=== PATIENT | female | born 1995 | race Caucasian/White ===

== ENCOUNTER 2017-08-20 21:45 | Outpatient (CLI) | payer OTHER ==
[2017-08-20] MEDS: LACTATED RINGER'S 1,000 ML IV (23:09)
[2017-08-20 23:24] LABS: ADD UMIC NO; UR ASCORBIC ACID NEGATIVE (NEGATIVE); UR BILIRUBIN (Dip) NEGATIVE (NEGATIVE); UR BLOOD (Dip) NEGATIVE (NEGATIVE); UR CLARITY CLEAR (CLEAR); UR COLOR STRAW (YELLOW); UR GLUCOSE (Dip) 3+ mg/dL (NEGATIVE); UR KETONES (Dip) NEGATIVE (NEGATIVE); UR LEUKOCYTE ESTERASE (Dip) NEGATIVE Leu/ul (NEGATIVE); UR NITRITE (Dip) NEGATIVE (NEGATIVE); UR SPECIFIC GRAVITY (Dip) 1.003 (1.003-1.030); UR TOTAL PROTEIN (Dip) NEGATIVE (NEGATIVE); UR UROBILINOGEN (Dip) NEGATIVE (NEGATIVE)
[2017-08-20 23:54] LABS: ADD MAN DIFF? NO
[2017-08-21 00:01] LABS: BASOPHILS % 0.3 % (0.0-2.0); EOSINOPHILS # 0.1 10^3/ul (0.0-0.5); EOSINOPHILS % 1.1 % (0.0-7.0); HEMATOCRIT 37.2 % (37.0-47.0); HEMOGLOBIN 12.6 g/dl (12.0-16.0); LYMPHOCYTES # 2.1 10^3/ul (0.8-2.9); LYMPHOCYTES % 21.1 % (15.0-51.0); MEAN CORPUSCULAR HEMOGLOBIN 29.6 pg (29.0-33.0); MEAN CORPUSCULAR HGB CONC 33.9 g/dl (32.0-37.0); MEAN CORPUSCULAR VOLUME 87.5 fl (82.0-101.0); MEAN PLATELET VOLUME 11.1 fl (7.4-10.4); MONOCYTE # 0.7 10^3/ul (0.3-0.9); NEUTROPHILS % 69.9 % (39.0-77.0); PLATELET COUNT 216 10^3/UL (140-415); RED BLOOD COUNT 4.25 10^6/ul (4.20-5.40); RED CELL DISTRIBUTION WIDTH 13.6 % (11.5-14.5)
[2017-08-21 00:15] LABS: ALANINE AMINOTRANSFERASE 35 IU/L (13-69); ALBUMIN 3.5 g/dl (3.3-4.9); ALBUMIN/GLOBULIN RATIO 1.16; ALKALINE PHOSPHATASE 156 IU/L (42-121); ANION GAP 15 (8-16); ASPARTATE AMINO TRANSFERASE 34 IU/L (15-46); BLOOD UREA NITROGEN 13 mg/dl (7-20); CALCIUM 9.6 mg/dl (8.4-10.2); CARBON DIOXIDE 23 mmol/L (21-31); CHLORIDE 105 mmol/L (97-110); CREATININE 0.76 mg/dl (0.44-1.00); GLUCOSE 85 mg/dl (70-220); POTASSIUM 3.7 mmol/L (3.5-5.1); SODIUM 139 mmol/L (135-144); TOTAL PROTEIN 6.5 g/dl (6.1-8.1)
[2017-08-21 00:21] LABS: INR 0.93; PROTIME 12.5 Sec (11.9-14.9)
[2017-08-21 00:22] LABS: PARTIAL THROMBOPLASTIN TIME 25.8 Sec (25.0-35.0)
[2017-08-21 00:25] LABS: RUPTURE FETAL MEMBRANES NEGATIVE (NEGATIVE)
[2017-08-21] MEDS: BETAMET NA PHOS/AC(6 MG/ML) 5ML INJ IM (00:41)
== END 2017-08-21 01:57 | disposition home or self-care (01) ==
LOC: OBT 21:45 → L-D 21:46
DX: O13.3 Gestational [pregnancy-induced] hypertension without significant proteinuria, third trimester (principal); Z3A.35 35 weeks gestation of pregnancy
CPT/HCPCS: 36415; 76818; 80053; 81003; 84112; 84560; 85025; 85610; 85730; 87086; 96360; 96361; 96372

== ENCOUNTER 2017-08-21 22:27 | Outpatient (CLI) | payer OTHER ==
[2017-08-21] MEDS: BETAMET NA PHOS/AC(6 MG/ML) 5ML INJ IM (23:32)
== END 2017-08-22 06:07 | disposition home or self-care (01) ==
LOC: OBT 08-22 06:07 → L-D 22:28
DX: O62.9 Abnormality of forces of labor, unspecified (principal); Z3A.35 35 weeks gestation of pregnancy
CPT/HCPCS: J0702

== ENCOUNTER 2017-08-24 17:39 | Inpatient (IN) | payer OTHER ==
[2017-08-24 18:20] LABS: ADD MAN DIFF? NO
[2017-08-24 18:22] LABS: BASOPHIL # 0.1 10^3/ul (0.0-0.1); BASOPHILS % 0.5 % (0.0-2.0); EOSINOPHILS # 0.1 10^3/ul (0.0-0.5); EOSINOPHILS % 0.9 % (0.0-7.0); HEMATOCRIT 35.5 % (37.0-47.0); LYMPHOCYTES % 17.7 % (15.0-51.0); MEAN CORPUSCULAR HEMOGLOBIN 30.1 pg (29.0-33.0); MEAN CORPUSCULAR HGB CONC 33.8 g/dl (32.0-37.0); MONOCYTE # 0.9 10^3/ul (0.3-0.9); MONOCYTES % 7.6 % (0.0-11.0); NEUTROPHILS % 70.3 % (39.0-77.0); NUCLEATED RED BLOOD CELLS% 0.4 /100WBC (0.0-0.0); PLATELET COUNT 208 10^3/UL (140-415); RED BLOOD COUNT 3.99 10^6/ul (4.20-5.40); RED CELL DISTRIBUTION WIDTH 13.9 % (11.5-14.5)
[2017-08-24 18:22] LABS: WHITE BLOOD COUNT 11.4 10^3/ul (4.8-10.8)
[2017-08-24 18:32] LABS: ADD UMIC YES; UR ASCORBIC ACID NEGATIVE (NEGATIVE); UR BACTERIA FEW /HPF (NONE SEEN); UR BILIRUBIN (Dip) NEGATIVE (NEGATIVE); UR BLOOD (Dip) NEGATIVE (NEGATIVE); UR CLARITY SLIGHTLY CLOUDY (CLEAR); UR COLOR YELLOW (YELLOW); UR GLUCOSE (Dip) 1+ mg/dL (NEGATIVE); UR KETONES (Dip) NEGATIVE (NEGATIVE); UR LEUKOCYTE ESTERASE (Dip) 2+ Leu/ul (NEGATIVE); UR NITRITE (Dip) NEGATIVE (NEGATIVE); UR RBC 3 /HPF (0-5); UR SPECIFIC GRAVITY (Dip) 1.009 (1.003-1.030); UR SQUAMOUS EPITHELIAL CELL FEW /HPF (FEW); UR TOTAL PROTEIN (Dip) NEGATIVE (NEGATIVE); UR UROBILINOGEN (Dip) NEGATIVE (NEGATIVE); UR WBC 12 /HPF (0-5)
[2017-08-24 18:40] LABS: ALANINE AMINOTRANSFERASE 54 IU/L (13-69); ALBUMIN 3.4 g/dl (3.3-4.9); ALBUMIN/GLOBULIN RATIO 1.21; ALKALINE PHOSPHATASE 136 IU/L (42-121); ANION GAP 14 (8-16); ASPARTATE AMINO TRANSFERASE 52 IU/L (15-46); BILIRUBIN,INDIRECT 0.1 mg/dl (0-1.1); BILIRUBIN,TOTAL 0.1 mg/dl (0.2-1.3); BLOOD UREA NITROGEN 14 mg/dl (7-20); CALCIUM 9.3 mg/dl (8.4-10.2); CARBON DIOXIDE 21 mmol/L (21-31); CHLORIDE 107 mmol/L (97-110); CREATININE 0.82 mg/dl (0.44-1.00); GLUCOSE 136 mg/dl (70-220); POTASSIUM 3.9 mmol/L (3.5-5.1); SODIUM 138 mmol/L (135-144); TOTAL PROTEIN 6.2 g/dl (6.1-8.1)
[2017-08-24 18:46] LABS: INR 0.91; PARTIAL THROMBOPLASTIN TIME 22.9 Sec (25.0-35.0); PROTIME 12.3 Sec (11.9-14.9)
[2017-08-25 08:08] LABS: ADD MAN DIFF? NO
[2017-08-25 08:22] LABS: WHITE BLOOD COUNT 10.7 10^3/ul (4.8-10.8)
[2017-08-25 08:22] LABS: BASOPHIL # 0.1 10^3/ul (0.0-0.1); BASOPHILS % 0.6 % (0.0-2.0); EOSINOPHILS # 0.1 10^3/ul (0.0-0.5); EOSINOPHILS % 1.2 % (0.0-7.0); HEMATOCRIT 35.4 % (37.0-47.0); HEMOGLOBIN 11.8 g/dl (12.0-16.0); LYMPHOCYTES # 2.4 10^3/ul (0.8-2.9); LYMPHOCYTES % 22.4 % (15.0-51.0); MEAN CORPUSCULAR HGB CONC 33.3 g/dl (32.0-37.0); MEAN CORPUSCULAR VOLUME 90.1 fl (82.0-101.0); MEAN PLATELET VOLUME 11.1 fl (7.4-10.4); MONOCYTE # 0.8 10^3/ul (0.3-0.9); MONOCYTES % 7.6 % (0.0-11.0); NEUTROPHIL # 7.1 10^3/ul (1.6-7.5); NEUTROPHILS % 65.7 % (39.0-77.0); NUCLEATED RED BLOOD CELLS% 0.2 /100WBC (0.0-0.0); PLATELET COUNT 195 10^3/UL (140-415); RED BLOOD COUNT 3.93 10^6/ul (4.20-5.40); RED CELL DISTRIBUTION WIDTH 13.9 % (11.5-14.5)
[2017-08-25 08:37] LABS: ALANINE AMINOTRANSFERASE 47 IU/L (13-69); ALBUMIN 3.3 g/dl (3.3-4.9); ALBUMIN/GLOBULIN RATIO 1.13; ALKALINE PHOSPHATASE 139 IU/L (42-121); ANION GAP 17 (8-16); ASPARTATE AMINO TRANSFERASE 41 IU/L (15-46); BILIRUBIN,INDIRECT 0.1 mg/dl (0-1.1); BILIRUBIN,TOTAL 0.1 mg/dl (0.2-1.3); BLOOD UREA NITROGEN 16 mg/dl (7-20); CARBON DIOXIDE 20 mmol/L (21-31); CHLORIDE 108 mmol/L (97-110); CREATININE 0.59 mg/dl (0.44-1.00); GLUCOSE 105 mg/dl (70-220); SODIUM 141 mmol/L (135-144); TOTAL PROTEIN 6.2 g/dl (6.1-8.1); URIC ACID 4.4 mg/dl (3.1-7.9)
[2017-08-25] MEDS: PRENATAL VITAMIN PO (09:29)
[2017-08-25 18:13] LABS: COLLECTION PERIOD 24 hrs
[2017-08-25 18:23] LABS: VOLUME 2300 mls
[2017-08-25 18:24] LABS: COLLECTION PERIOD 24 hrs; SCRET 0.59 mg/dl (0.44-1.00); VOLUME 2300 ml/24hrs
[2017-08-25 18:44] LABS: CREATININE CLEARANCE 141.3 mls/min (84.0-162.0); CREATININE,URINE RANDOM 52.21 mg/dl (20-320)
== END 2017-08-25 22:30 | disposition home or self-care (01) | DRG 782 ==
LOC: OBT 17:39 → L-D 17:40 → OBT 19:00 → L-D 19:00 → PP1 20:08
DX: O13.3 Gestational [pregnancy-induced] hypertension without significant proteinuria, third trimester (principal); Z3A.35 35 weeks gestation of pregnancy
CPT/HCPCS: 76818; 80053; 81001; 82575; 84156; 84560; 85025; 85384; 85610; 85730; 86900; 86901

== ENCOUNTER 2017-09-06 16:20 | Outpatient (CLI) | payer OTHER | END 2017-09-06 20:00 | disposition home or self-care (01) | LOC: OBT 16:20 → L-D 16:21 → OBT 20:00 | DX: O62.9 Abnormality of forces of labor, unspecified (principal); Z3A.37 37 weeks gestation of pregnancy | CPT/HCPCS: 76815; 76818 ==

== ENCOUNTER 2017-09-19 14:16 | Inpatient (IN) | payer OTHER ==
[2017-09-19] MEDS ORDERED: MISOPROSTOL 200 MCG TAB PR (17:00)
[2017-09-19] MEDS ORDERED: BUTORPHANOL 2 MG INJ IV (17:00)
[2017-09-19] MEDS ORDERED: LIDOCAINE 1% (MPF) 30 ML INJ INJ (17:00)
[2017-09-19] MEDS ORDERED: METHYLERGONOVINE 0.2 MG INJ IM (17:00)
[2017-09-19] MEDS ORDERED: OXYTOCIN 30 UNITS/LR 500 ML IV (17:00)
[2017-09-19] MEDS ORDERED: CARBOPROST 250 MCG INJ IM (17:00)
[2017-09-19] MEDS: LACTATED RINGER'S 1,000 ML IV (18:14)
[2017-09-19 18:26] LABS: ADD MAN DIFF? NO
[2017-09-19 18:29] LABS: WHITE BLOOD COUNT 10.3 10^3/ul (4.8-10.8)
[2017-09-19 18:29] LABS: BASOPHIL # 0.1 10^3/ul (0.0-0.1); BASOPHILS % 0.5 % (0.0-2.0); EOSINOPHILS # 0.1 10^3/ul (0.0-0.5); EOSINOPHILS % 0.8 % (0.0-7.0); HEMATOCRIT 39.6 % (37.0-47.0); LYMPHOCYTES % 19.8 % (15.0-51.0); MEAN CORPUSCULAR HEMOGLOBIN 29.3 pg (29.0-33.0); MEAN CORPUSCULAR HGB CONC 32.8 g/dl (32.0-37.0); MEAN CORPUSCULAR VOLUME 89.2 fl (82.0-101.0); MEAN PLATELET VOLUME 11.1 fl (7.4-10.4); MONOCYTE # 0.7 10^3/ul (0.3-0.9); MONOCYTES % 6.9 % (0.0-11.0); NEUTROPHIL # 7.4 10^3/ul (1.6-7.5); NEUTROPHILS % 71.3 % (39.0-77.0); PLATELET COUNT 215 10^3/UL (140-415); RED BLOOD COUNT 4.44 10^6/ul (4.20-5.40); RED CELL DISTRIBUTION WIDTH 13.6 % (11.5-14.5)
[2017-09-19 18:48] LABS: INR 0.94; PROTIME 12.7 Sec (11.9-14.9)
[2017-09-19 18:49] LABS: PARTIAL THROMBOPLASTIN TIME 26.4 Sec (25.0-35.0)
[2017-09-20] MEDS: LACTATED RINGER'S 1,000 ML IV ×5 (01:25→17:13)
[2017-09-20] MEDS ORDERED: FENTAnyl 2MCG/ML-ROPIV 0.2% 100 ML (06:17)
[2017-09-20] MEDS ORDERED: ZOLPIDEM 5 MG TAB PO ×2 (06:30→07:00)
[2017-09-20] MEDS ORDERED: HYDROmorphONE 0.5 MG/0.5 ML SYG IV ×4 (06:30→07:00)
[2017-09-20] MEDS ORDERED: KETOROLAC 30 MG INJ IV ×2 (06:30→07:00)
[2017-09-20] MEDS ORDERED: NALOXONE (0.4 MG/ML) INJ IV ×2 (06:30→07:00)
[2017-09-20] MEDS ORDERED: DIPHENHYDRAMINE 50 MG INJ IV ×2 (06:30→07:00)
[2017-09-20] MEDS ORDERED: FENTAnyl 2MCG/ML-ROPIV 0.2% 100 ML BAG EPI (07:00)
[2017-09-20] MEDS ORDERED: ONDANSETRON 4 MG INJ IV ×2 (07:00→22:00)
[2017-09-20] MEDS: FENTAnyl 2MCG/ML-ROPIV 0.2% 100 ML BAG EPI ×2 (07:36→15:50)
[2017-09-20] MEDS: OXYTOCIN 30 UNITS/LR 500 ML IV ×4 (08:22→22:34)
[2017-09-20] MEDS ORDERED: FERROUS SULFATE (EC) 325 MG TAB PO (09:00)
[2017-09-20 17:38] LABS: RAPID PLASMA REAGIN NONREACTIVE (NR)
[2017-09-20] MEDS: IBUPROFEN 600 MG TAB PO ×2 (19:06→23:40)
[2017-09-20] MEDS ORDERED: OXYTOCIN 30 UNITS/LR 500 ML IV ×2 (21:31)
[2017-09-20] MEDS ORDERED: LANOLIN 7 GM TUBE TOP ×2 (22:00)
[2017-09-20] MEDS ORDERED: BENZOCAINE 20% 56 ML SPRAY TOP ×2 (22:00)
[2017-09-20] MEDS ORDERED: OXYCODONE/ASPIRIN (4.88/325) TAB PO ×6 (22:00)
[2017-09-20] MEDS ORDERED: WITCH HAZEL/GLYCERIN PAD PR ×2 (22:00)
[2017-09-20] MEDS ORDERED: HYDROCODONE/APAP (5/325) TAB PO ×6 (22:00)
[2017-09-20] MEDS ORDERED: DIBUCAINE 1% 30 GM OINT PR ×3 (22:00)
[2017-09-20] MEDS ORDERED: ACETAMINOPHEN 325 MG TAB PO ×3 (22:00)
[2017-09-20] MEDS: WITCH HAZEL/GLYCERIN PAD PR (22:34)
[2017-09-20] MEDS: LANOLIN 7 GM TUBE TOP (22:34)
[2017-09-20] MEDS: BENZOCAINE 20% 56 ML SPRAY TOP (22:34)
[2017-09-21] MEDS ORDERED: IBUPROFEN 600 MG TAB PO ×2
[2017-09-21] MEDS: IBUPROFEN 600 MG TAB PO ×4 (05:45→23:48)
[2017-09-21 07:10] LABS: ADD MAN DIFF? NO
[2017-09-21 07:15] LABS: WHITE BLOOD COUNT 11.8 10^3/ul (4.8-10.8)
[2017-09-21 07:15] LABS: BASOPHILS % 0.3 % (0.0-2.0); EOSINOPHILS % 0.3 % (0.0-7.0); HEMATOCRIT 33.6 % (37.0-47.0); HEMOGLOBIN 11.2 g/dl (12.0-16.0); LYMPHOCYTES # 1.8 10^3/ul (0.8-2.9); LYMPHOCYTES % 15.1 % (15.0-51.0); MEAN CORPUSCULAR HEMOGLOBIN 29.5 pg (29.0-33.0); MEAN CORPUSCULAR HGB CONC 33.3 g/dl (32.0-37.0); MEAN CORPUSCULAR VOLUME 88.4 fl (82.0-101.0); MEAN PLATELET VOLUME 11.3 fl (7.4-10.4); MONOCYTE # 0.8 10^3/ul (0.3-0.9); NEUTROPHIL # 9.1 10^3/ul (1.6-7.5); PLATELET COUNT 165 10^3/UL (140-415); RED CELL DISTRIBUTION WIDTH 13.6 % (11.5-14.5)
[2017-09-21] MEDS ORDERED: MEASLES,MUMPS,RUBELLA VACCINE INJ SC* (09:00)
[2017-09-21] MEDS ORDERED: SENNA/DOCUSATE NA (8.6MG/50MG) TAB PO ×2 (09:00)
[2017-09-21] MEDS: SENNA/DOCUSATE NA (8.6MG/50MG) TAB PO ×2 (09:12→21:49)
[2017-09-22] MEDS: IBUPROFEN 600 MG TAB PO ×2 (06:20→12:00)
[2017-09-22] MEDS ORDERED: MEASLES,MUMPS,RUBELLA VACCINE INJ SC* (09:00)
[2017-09-22] MEDS: MEASLES,MUMPS,RUBELLA VACCINE INJ SC* (09:00)
[2017-09-22] MEDS: SENNA/DOCUSATE NA (8.6MG/50MG) TAB PO (09:10)
== END 2017-09-22 18:33 | disposition home or self-care (01) | DRG 775 ==
LOC: OBT 14:16 → L-D 09-20 02:23 → PP1 09-20 20:59 → OBT 15:33 → L-D 15:30
PROVIDERS: Obstetrics & Gynecology
PROC: 10E0XZZ Delivery of Products of Conception, External Approach (ICD-10-PCS; principal; 2017-09-20)
PROC: 0HQ9XZZ Repair Perineum Skin, External Approach (ICD-10-PCS; 2017-09-20)
PROC: 3E033VJ Introduction of Other Hormone into Peripheral Vein, Percutaneous Approach (ICD-10-PCS; 2017-09-20)
DX: O70.0 First degree perineal laceration during delivery (principal); Z3A.38 38 weeks gestation of pregnancy; Z37.0 Single live birth
CPT/HCPCS: 62319; 85025; 85610; 85730; 86592; 86900; 86901; 99464